=== PATIENT | male | born 1990 | race Caucasian/White ===

== ENCOUNTER → 2019-06-11 09:04 | Outpatient (BNVA) | payer MEDICAID, SELFPAY | PROVIDERS: PCP Psychiatry & Neurology Psychiatry; Visit Provider Nurse Practitioner | DX: F71 Moderate intellectual disabilities (principal); F63.81 Intermittent explosive disorder | CPT/HCPCS: 99213 ==

== ENCOUNTER → 2019-09-02 07:42 | Outpatient (BNVA) | payer MEDICAID, SELFPAY | PROVIDERS: PCP Psychiatry & Neurology Psychiatry; Visit Provider Nurse Practitioner | DX: F63.81 Intermittent explosive disorder (principal); F71 Moderate intellectual disabilities | CPT/HCPCS: 99214 ==

== ENCOUNTER → 2019-09-30 08:23 | Outpatient (BNVA) | payer MEDICAID, SELFPAY | PROVIDERS: PCP Psychiatry & Neurology Psychiatry; Visit Provider Nurse Practitioner | DX: F63.81 Intermittent explosive disorder (principal); F71 Moderate intellectual disabilities | CPT/HCPCS: 99213 ==

== ENCOUNTER → 2019-12-29 07:57 | Outpatient (BNVA) | payer MEDICAID, SELFPAY | PROVIDERS: PCP Psychiatry & Neurology Psychiatry; Visit Provider Nurse Practitioner | DX: F63.81 Intermittent explosive disorder (principal); F71 Moderate intellectual disabilities | CPT/HCPCS: 99213 ==

== ENCOUNTER → 2020-01-16 08:01 | Outpatient (BNVA) | payer MEDICAID, SELFPAY | PROVIDERS: PCP Psychiatry & Neurology Psychiatry; Visit Provider Nurse Practitioner | DX: F63.81 Intermittent explosive disorder (principal); F71 Moderate intellectual disabilities | CPT/HCPCS: 99214 ==

== ENCOUNTER 2020-02-09 11:45 | Outpatient (CLI) | payer MEDICAID, SELFPAY ==
--- NOTE | 2020-02-09 11:53 | CT_ITS ---
WS: [id number] CT ABDOMEN PELVIS TECHNIQUE: Contrast-enhanced CT of the abdomen and pelvis with coronal and sagittal reformatted image s. CLINICAL INFORMATION: HEMATURIA COMPARISON: CT 10 013 DLP: 1337.[address] scans at [facility] use at least one of these dose optimization techniques: automat ed exposure control; mA and/or kV adjustment per patient size (includes targeted exams where dose is matched to clinical indication); or iterative reconstruction. FINDINGS: Mild diffuse fatty infiltration of the liver. Portal vein and splenic vein are patent. Normal gallbla dder. Normal spleen. Normal GE junction. Slight bibasilar atelectasis. Normal pancreas. Adrenal gland s are normal. Normal renal parenchymal enhancement. No hydronephrosis. Bladder is normal in appearanc e. No bladder wall thickening. No visualized bladder lesions. Normal sigmoid colon. No evidence of small or large bowel obstruction. Tiny fat-containing umbilical hernia. Induration in the subcutaneous anterior abdominal wall soft tissues may be related to subcuta neous injections. Normal caliber abdominal aorta. No pelvic or inguinal lymphadenopathy. Disc space narrowing worse L5- S1. Slight retrolisthesis L5 on S1. Disc bulging worse L4-5. CT/CT abdomen pelvis w con* [id number] IMPRESSION: 1. Mild diffuse fatty infiltration liver. 2. Normal bilateral renal parenchymal enhancement. No hydronephrosis. 3. Bladder is normal in appearance. No visualized bladder lesion. If symptoms persist bladder can be further evaluated with cystoscopy. 4. No abdominal or pelvic lymphadenopathy. 5. Mild disc bulging with small central protrusion L4-5.
[2020-02-09] MEDS: iohexol 300 mg/mL 100 mL Btl IV (12:23)
== END 2020-02-09 11:46 | disposition home or self-care (01) ==
LOC: RADWPI 11:50
PROVIDERS: PCP Psychiatry & Neurology Psychiatry; Visit Provider Family Medicine
DX: R31.9 Hematuria, unspecified (principal); K76.0 Fatty (change of) liver, not elsewhere classified; M51.26 Other intervertebral disc displacement, lumbar region
CPT/HCPCS: 74177; Q9967

== ENCOUNTER → 2020-02-13 13:11 | Outpatient (BNVA) | payer MEDICAID, SELFPAY | PROVIDERS: PCP Family Medicine; Visit Provider Urology | DX: R31.0 Gross hematuria (principal) | CPT/HCPCS: 81001 ==

== ENCOUNTER → 2020-03-12 07:36 | Outpatient (BNVA) | payer MEDICAID, SELFPAY | PROVIDERS: PCP Family Medicine; Visit Provider Nurse Practitioner | DX: F63.81 Intermittent explosive disorder (principal); Z79.899 Other long term (current) drug therapy; F71 Moderate intellectual disabilities | CPT/HCPCS: 99213 ==

== ENCOUNTER 2020-03-19 13:43 | Emergency (ER) | payer MEDICAID, SELFPAY ==
[2020-03-19 14:01] VITALS: BP 142/103; PULSE 90; RESP 18; TEMP 37.5; O2SAT 95; BMI 37.3
--- NOTE | 2020-03-19 15:23 | W.ED.DENTAL ---
HPI - Dental/Oral General: Chief complaint: Dental/Oral Stated complaint: R SIDED TOOTH PAIN Time Seen by Provider: 03/19/20 15:19 Source: patient Mode of arrival: ambulatory Limitations: other ([facility] - staff with him) History of Present Illness: HPI Narrative: 29-year-old male patient presents to the emergency department with 1 day onset of dental pain. He reports pain located to the right side of his mouth. States pain with chewing. MD Complaint: tooth pain Teeth map: 1. Onset (ago): day(s) (1) Duration: constant Severity: moderate Relieving factors: other (Tylenol) Exacerbating factors: chewing, cold and heat Context: history of dental caries Associated symptoms: Reports no associated symptoms; Denies fever(s) Treatment prior to arrival: topical analgesic Review of Systems General: Reports: 10 or more systems reviewed and unremarkable except in HPI and below Const: Denies: fever(s), chills or diaphoresis Eyes: Denies: blurry vision or eye redness ENMT: Reports: dental pain; Denies: throat pain, swelling of lips/tongue, oral sores, halitosis or disequilibrium Card: Denies: chest pain, palpitations or irregular heart rhythm Resp: Denies: dyspnea, productive cough, non-productive cough or wheezing GI: Denies: abdominal pain, nausea or vomiting : Denies: dysuria Musc: Denies: back pain Skin/Breast: Denies: rash or pruritus Neuro: Denies: headache(s), weakness in extremities or behavioral changes Psych: Denies: anxiety or depression Jamar/Lymph: Denies: easy bruising PFSH ED PFSH: Medical History (Updated 03/19/20 @ 15:31 by RADHA Duggan) Intermittent explosive disorder Moderate intellectual disabilities Testicular pain Social History Smoking and tobacco status: never smoked Alcohol intake: never Caregiver/support person: Yes Lives independently: No Housing: Assisted Living Facility Marital status: Single Current occupational status: disabled Physical Exam Const: COMMON NORMALS: no acute distress, patient oriented x3, healthy appearing and alert GENERAL APPEARANCE: cooperative, comfortable and well hydrated HENMT: COMMON NORMALS: normocephalic, Normal external nose present and moist oral mucous membranes HEAD & SCALP: normocephalic FACE & SINUS: normal facial exam and face symmetric NOSE: Normal external nose present TEETH & GINGIVA IMAGES: 1. gingival edema and erythema, caries to the lateral tooth THROAT: posterior oropharynx normal OTHER: negative Clovis's angina Eye: COMMON NORMALS: Equal, round and reactive pupils present and EOMs intact bilaterally GENERAL EYE: appearance normal, both eyes and all related structures PUPIL: Yes Equal, round and reactive pupils present Neck/C-Spine: COMMON NORMALS: full ROM and no lymphadenopathy GENERAL: Yes normal visual inspection and Yes trachea midline CERVICAL SPINE: Yes cervical ROM normal Lymph: LYMPHATIC: no lymphadenopathy noted Chest: COMMONS NORMALS: normal inspection of the chest Resp: COMMON NORMALS: normal respiratory effort and clear to auscultation bilaterally AUSCULTATION: clear to auscultation bilaterally Cardio: COMMON NORMALS: regular rhythm, S1 normal heart sound present and S2 normal heart sound present RHYTHM: regular rhythm HEART SOUNDS: S1 normal heart sound present and S2 normal heart sound present GI: COMMON NORMALS: Soft to palpation and non-tender INSPECTION: Yes normal to inspection PALPATION: Yes Soft to palpation : COMMON NORMALS: Yes no CVA tenderness BLADDER/KIDNEY EXAM: Yes no CVA tenderness Back/Pelvis: COMMON NORMALS: no CVA tenderness and thoracic and lumbar spine normal to inspection Extremity: COMMON NORMALS: normal to inspection and capillary refill normal Neuro: COMMON NORMALS: patient oriented x3 and no focal motor deficits SENSORIUM/ORIENTATION: Yes alert Psych: COMMON NORMALS: mental status grossly normal, Normal thought process present and cooperative ACTIVITY/MOTOR BEHAVIOR: Yes appropriate eye contact THOUGHT PROCESS: Normal thought process present Skin: COMMON NORMALS: no rashes or lesions noted and turgor normal GENERAL SKIN EXAM: no rashes or lesions noted and turgor normal Course Vital Signs: Vital signs: Vital Signs Temperature 99.5 F 03/19/20 14:01 Pulse Rate 90 03/19/20 14:01 Respiratory Rate 18 03/19/20 14:01 Blood Pressure 142/103 03/19/20 14:01 Pulse Oximetry 95 03/19/20 14:01 Discharge Plan Discharge Patient Disposition: Home Clinical Impression: Dental caries, Dental abscess, Toothache Condition: Stable Prescriptions: New clindamycin HCl 300 mg capsule 300 mg PO QID 7 Days Qty: 28 RF: 0 IBU 800 mg tablet 800 mg PO TID PRN (Reason: pain) Qty: 30 RF: 0 Lidocaine Viscous 2 % solution 1.2 ml topical Q3H PRN (Reason: pain) Qty: 15 RF: 0 No Action atorvastatin 20 mg tablet 20 mg PO DAILY RF: 0 atorvastatin 10 mg tablet 10 mg PO DAILY RF: 0 ferrous sulfate 325 mg (65 mg iron) tablet 325 mg PO DAILY RF: 0 lisinopril 2.5 mg tablet 2.5 mg PO DAILY RF: 0 levothyroxine 125 mcg capsule 125 mcg PO DAILY RF: 0 insulin aspart U-100 [Novolog PenFill U-100 Insulin] 100 unit/mL cartridge 12 unit SUBCUT TID RF: 0 Levemir U-100 Insulin 100 unit/mL solution 28 unit SUBCUT TID RF: 0 hydroxyzine HCl 25 mg tablet 25 mg PO BID Qty: 60 RF: 1 fluoxetine 20 mg capsule 20 mg PO DAILY Qty: 30 RF: 2 divalproex 500 mg tablet extended release 24 hr 500 mg PO .COMPLEX Qty: 120 RF: 2 benztropine 0.5 mg tablet 0.5 mg PO TID Qty: 90 RF: 1 oxcarbazepine [Trileptal] 600 mg tablet 600 mg PO TID Qty: 90 RF: 1 risperidone [Risperdal] 1 mg tablet 2 mg PO TID Qty: 180 RF: 1 trazodone 150 mg tablet 150 mg PO .HS Qty: 30 RF: 1 Discharge Orders: Discharge Order (Routine); Ordered 03/19/20 Ordered By: Lisa Paige Referrals: Naeem Sheikh MD [Primary Care Provider] - Discharge Diet: GI Soft Discharge Activity: Resume usual activity Patient Instructions: Dental Abscess (ED), Dental Caries (ED), Toothache (ED) Activity Restrictions/Additional Instructions: avoid crunchy, hard foods Take clindamycin until all gone, even if better Take IBU with food, avoid eating on the affected side, may use Tylenol as needed for pain Return to the ED if you experience swelling under the chin, difficulty swallowing or increased pain Warm salt water swish and spit several times daily Avoid OTC medication such as Advil, Aleve as duplication of theray can occur Follow up with dentist in 7 days - sooner if worse Coding Level of Care Code ED Wedding Transportation Driver for Chg Fwd Exam Comprehensive
== END 2020-03-19 15:35 | disposition home or self-care (01) ==
PROVIDERS: Emergency Provider Nurse Practitioner Family; PCP Family Medicine
DX: K02.9 Dental caries, unspecified (principal); K04.7 Periapical abscess without sinus; Z79.4 Long term (current) use of insulin
CPT/HCPCS: 12345; 99281

== ENCOUNTER 2020-03-21 14:25 | Emergency (ER) | payer MEDICAID, SELFPAY ==
[2020-03-21 14:28] VITALS: BP 146/105; PULSE 113; RESP 18; TEMP 36.5; O2SAT 97; BMI 30.7
--- NOTE | 2020-03-21 14:33 | ED_ITS ---
HPI - Skin/Abscess/Foreign Bdy General: Chief complaint: Skin/Abscess/Foreign Body Stated complaint: segundo alejandre sent over/infection in face Time Seen by Provider: 03/21/20 14:33 History of Present Illness: HPI narrative: Patient is a 29-year-old male comes to the ED with right-sided facial swelling and pain due to dental pain and infection. Patient was seen here in the ED on March 19 for same complaint and put on clindamycin. Sent over by Segundo Alejandre today for worsening swelling of the face. He has taken medication as prescribed and states that after being on antibiotic for 2 days his face has gotten more swollen and more painful. He says the original pain was a dental pain in the right lower jaw that started approximately 3 to 4 days ago. He currently rates pain an 8 out of 10. He talked to a dentist several days ago and they told him he needs to be on an antibiotic before he can be seen by dentist. He says he has had 2 episodes of emesis right after taking his other previously prescribed meds. He denies any fever, chills, shortness of breath, trouble breathing, abdominal pain, bladder or bowel symptoms. Associated symptoms: Deny chills, fever(s), nausea or vomiting Review of Systems Const: Denies: fever(s), chills or fatigue Eyes: Denies: change in vision or eye discomfort ENMT: Reports: dental pain and sinus pain (Right lower jaw swelling and pain.); Denies: throat pain, odynophagia, nasal discharge or nasal congestion Card: Denies: chest pain, palpitations, edema, swelling of feet/ankles, dyspnea on exertion or orthopnea Resp: Denies: dyspnea, productive cough or non-productive cough GI: Denies: abdominal pain, nausea, vomiting, diarrhea, constipation or hematochezia : Denies: flank pain, difficulty urinating, dysuria or hematuria Musc: Denies: neck pain, back pain or extremity swelling Skin/Breast: Denies: rash or new lesions Neuro: Denies: headache(s), numbness in extremities or weakness in extremities [facility] ED PFSH: Medical History Intermittent explosive disorder Moderate intellectual disabilities Testicular pain Social History Smoking and tobacco status: never smoked Alcohol intake: never Caregiver/support person: Yes Lives independently: No Housing: Assisted Living Facility Marital status: Single Current occupational status: disabled Physical Exam Const: COMMON NORMALS: no acute distress, patient oriented x3 and alert GENERAL APPEARANCE: cooperative and comfortable HENMT: COMMON NORMALS: normocephalic HEAD & SCALP: normocephalic FACE & SINUS: edema on the right mandible and Facial tenderness on exam of face and sinuses on the right mandible MOUTH: Normal oral and palatal mucosa present TEETH & GINGIVA: Yes caries (Caries around tooth #29 and thirty.) and Yes gingiva abnormal edematous (Around tooth #29 and 30.) THROAT: posterior oropharynx normal and uvula midline Eye: COMMON NORMALS: Equal, round and reactive pupils present and conjunctivae normal CONJUNCTIVA: Yes conjunctivae normal PUPIL: Yes Equal, round and reactive pupils present Neck/C-Spine: COMMON NORMALS: supple GENERAL: Yes normal visual inspection Resp: COMMON NORMALS: normal respiratory effort, No retractions, No use of accessory muscles and clear to auscultation bilaterally AUSCULTATION: clear to auscultation bilaterally Cardio: COMMON NORMALS: regular rate, regular rhythm, S1 normal heart sound present, S2 normal heart sound present, No gallops present (Cardio), No clicks present (Cardio), No murmurs present (Cardio) and Peripheral pulses 2+ throughout RATE: regular rate RHYTHM: regular rhythm HEART SOUNDS: S1 normal heart sound present and S2 normal heart sound present PERIPHERAL PULSES: Peripheral pulses 2+ throughout GI: COMMON NORMALS: Normal to inspection, nondistended, normoactive bowel sounds present, Soft to palpation, non-tender and no masses PALPATION: Yes Soft to palpation : COMMON NORMALS: Yes no CVA tenderness BLADDER/KIDNEY EXAM: Yes no CVA tenderness Back/Pelvis: COMMON NORMALS: no CVA tenderness Extremity: COMMON NORMALS: normal to inspection Neuro: COMMON NORMALS: patient oriented x3 and moves all extremities SENSORIUM/ORIENTATION: Yes alert Skin: GENERAL SKIN EXAM: dry skin Course Vital Signs: Vital signs: Vital Signs Temperature 97.6 F 03/21/20 16:54 Pulse Rate 96 03/21/20 16:54 Respiratory Rate 16 03/21/20 16:54 Blood Pressure 123/77 03/21/20 16:54 Pulse Oximetry 97 03/21/20 16:54 MDM - Skin/Abscess/Foreign Bdy MDM Narrative: Medical decision making narrative: Patient is a 29-year-old male comes to the ED with right mandibular dental pain. He was seen here 2 days ago for same complaint. He was sent over here by Segundo Alejandre for worsening swelling. Patient had been taking his antibiotics as prescribed for the past 2 days. On exam patient did have significant right lower mandible facial swelling. CT of neck was performed to check for abscess. CT of neck findings showed no abscess or fluid pocket and just showed dental disease of first right mandibular molar with surrounding edema and reactive right submandibular lymph node swelling. Patient was given IV clindamycin and Solu-Medrol while here in the ED. He was discharged and told to contact dentist tomorrow to set up an appointment to get dental pain addressed. He was told to continue taking his prescribed clindamycin. I also sent him home with a prescription for Medrol Dosepak to help with the swelling. Return to ED precautions given. Patient understood and agreed with plan. Lab Data: Attestation: I reviewed the patient's lab results. Labs: Lab Results 03/21/20 03/21/20 Range/Units 15:15 15:15 WBC 6.2 (4.0-10.0) 10^3/ uL RBC 5.10 (4.1-5.3) 10^6/u L Hgb 13.4 (11.7-16.6) g/dL Hct 42.1 (42.0-52.0) % MCV 82.5 (80-94) fL MCH 26.3 L (28.0-34.0) pg MCHC 31.8 (30.0-36.0) g/dL RDW 13.2 (12.1-15.1) % Plt Count 216 (130-400) 10^3/c mm MPV 9.5 (7.4-10.4) fL Neut % (Auto) 59.6 % Lymph % (Auto) 24.7 % [place] % (Auto) 14.5 % Eos % (Auto) 0.6 % Baso % (Auto) 0.3 % Neut # (Auto) 3.69 (1.8-7.7) 10^3/u L Lymph # (Auto) 1.5 (0.8-4.8) 10^3/u L [place] # (Auto) 0.9 (0.2-0.9) 10^3/u L Eos # (Auto) 0.0 (0.0-0.8) 10^3/u L Baso # (Auto) 0.0 (0.0-0.1) 10^3/u L Nucleated RBC % (a uto) 0 % Nucleated RBCs # 0.0 /100WBC Sodium 137 (136-145) mmol/L Potassium 4.2 (3.5-5.1) mmol/L Chloride 99 (98-107) mmol/L Carbon Dioxide 27 (22-29) mmol/L Anion Gap 15.2 (5-19) BUN 12 (6-20) mg/dL Creatinine 0.7 (0.7-1.2) mg/dL GFR Calculation 131.5 H (90-130) mL/min Glucose 234 H (65-115) mg/dL Calculated Osmolal ity 291 (285-295) mOsm/k g Calcium 9.5 (8.5-10.5) mg/dL Total Bilirubin 0.2 (0.15-1.2) mg/dL AST 14 (0-40) U/L ALT 16 (0-41) U/L Alkaline Phosphata se 82 (40-130) IU/L Total Protein 7.1 (6.6-8.7) g/dL Albumin 4.3 (3.5-5.2) g/dL Globulin 2.8 (1.3-4.6) g/dL Imaging Data^: Other CT: Attestation: I personally reviewed and interpreted this imaging study as follows: Radiologist's impression: [address] [address] [address] Scan Report Signed Patient: Alex Mosqueda Unit #: [id number] : 1990 Age/Sex: 29 / M ADM Date: 03/21/20 Loc: ER Room/Bed: Attending Dr: Ordering Provider/Ordering MD: Yong Ray Date of Service: 03/21/20 Procedure(s): CT neck w con* [id number] Accession Number(s): [id number] Report Number: [id number] PROCEDURE INFORMATION: Exam: CT Neck With Contrast Exam date and time: 03/21/2020 3:03 PM Age: 29 years old Clinical indication: Mass, lump, or swelling in neck; Patient HX: C/O R sided facial and neck swelling and pain; Additional info: Facial swelling TECHNIQUE: Imaging protocol: Computed tomography images of the neck with intravenous contrast. Radiation optimization: All CT scans at this facility use at least one of these dose optimization techniques: automated exposure control; mA and/or kV adjustment per patient size (includes targeted exams where dose is matched to clinical indication); or iterative reconstruction. Contrast material: OMNI 300; Contrast volume: 95 ml; Contrast route: INTRAVENOUS (IV); COMPARISON: No relevant prior studies available. RADIATION DOSE METRICS: Total DLP (mGy-cm): 776.44 FINDINGS: Mastoid air cells: The mastoid air cells are clear bilaterally. Paranasal sinuses: No air-fluid levels in the paranasal sinuses. Nasopharynx: Unremarkable. Dental: Dental work noted in the 1st right mandibular molar. The there is lucency surrounding the roots of this tooth, suggesting recurrent dental disease. Oropharynx: Mild bilaterally symmetric tonsillar enlargement. No peritonsillar abscess. No compromise of the airway. Hypopharynx: Unremarkable. Larynx: Unremarkable. No epiglotic enlargement. Retropharyngeal space: Unremarkable. Submandibular/Parotid glands: Glands are normal in size. Thyroid: No enlarged or calcified nodules. Lymph nodes: Right submandibular lymph nodes measuring up to 2.2 cm, consistent with reactive adenopathy. Trachea: Unremarkable. Lungs: Unremarkable as visualized. Bones/joints: No acute fracture. Soft tissues: There is extensive edema in the right-sided subcutaneous fat anterior to the mandible. Edema of the right masseter muscle also noted. No fluid collection or abscess noted. CT/CT neck w con* [id number] IMPRESSION: 1. Dental work noted in the 1st right mandibular molar. The there is lucency surrounding the roots of this tooth, suggesting recurrent dental disease. 2. There is extensive edema in the right-sided subcutaneous fat anterior to the mandible. Edema of the right masseter muscle also noted. No fluid collection or abscess noted. This edema is likely secondary to the visualized dental disease. 3. Right submandibular lymph nodes measuring up to 2.2 cm, consistent with reactive adenopathy. 4. Mild bilaterally symmetric tonsillar enlargement. No peritonsillar abscess. No compromise of the airway. Radiation Dose CTDIVOL = (mGy): DLP = 776.44 (mGy-cm) Dictated By: Jez Garcia MD Signed By: Jez Garcia MD Signed Date/Time: 03/21/201612 DD/ 10 Discharge Plan Discharge Patient Disposition: Home Clinical Impression: Dental disease Condition: Stable Prescriptions: New Medrol (Indra) 4 mg tablets,dose pack See Rx Instructions .ROUTE .COMPLEX Qty: 21 RF: 0 No Action atorvastatin 20 mg tablet 20 mg PO DAILY RF: 0 atorvastatin 10 mg tablet 10 mg PO DAILY RF: 0 ferrous sulfate 325 mg (65 mg iron) tablet 325 mg PO DAILY RF: 0 lisinopril 2.5 mg tablet 2.5 mg PO DAILY RF: 0 levothyroxine 125 mcg capsule 125 mcg PO DAILY RF: 0 insulin aspart U-100 [Novolog PenFill U-100 Insulin] 100 unit/mL cartridge 12 unit SUBCUT TID RF: 0 Levemir U-100 Insulin 100 unit/mL solution 28 unit SUBCUT TID RF: 0 hydroxyzine HCl 25 mg tablet 25 mg PO BID Qty: 60 RF: 1 fluoxetine 20 mg capsule 20 mg PO DAILY Qty: 30 RF: 2 divalproex 500 mg tablet extended release 24 hr 500 mg PO .COMPLEX Qty: 120 RF: 2 benztropine 0.5 mg tablet 0.5 mg PO TID Qty: 90 RF: 1 oxcarbazepine [Trileptal] 600 mg tablet 600 mg PO TID Qty: 90 RF: 1 risperidone [Risperdal] 1 mg tablet 2 mg PO TID Qty: 180 RF: 1 trazodone 150 mg tablet 150 mg PO .HS Qty: 30 RF: 1 clindamycin HCl 300 mg capsule 300 mg PO QID 7 Days Qty: 28 RF: 0 IBU 800 mg tablet 800 mg PO TID PRN (Reason: pain) Qty: 30 RF: 0 Lidocaine Viscous 2 % solution 1.2 ml topical Q3H PRN (Reason: pain) Qty: 15 RF: 0 Discharge Orders: Discharge Order (Routine); Ordered 03/21/20 Ordered By: Yong Ray Referrals: Naeem Sheikh MD [Primary Care Provider] - Discharge Diet: Regular Discharge Activity: Resume usual activity Patient Instructions: Dental Caries (ED) Activity Restrictions/Additional Instructions: Follow-up with medical provider as directed. Contact dentist to set up an appointment with them for evaluation. Continue taking antibiotic and start taking daily prescribed Medrol Dosepak to help with facial swelling. Return to the ER or your medical provider if condition worsens. Please read and understand discharge instructions. If any questions, please ask. Coding Level of Care Code ED Bliss [employer] Operator for Chg Fwd Exam Comprehensive
[2020-03-21 15:22] VITALS: BP 127/75; PULSE 94; RESP 18; O2SAT 95
[2020-03-21] MEDS: ondansetron 2 mg/ML SDV 2 mL 4 MG IVP (15:24)
[2020-03-21 15:25] VITALS: RESP 18
[2020-03-21] MEDS: morphine 4 mg/mL SDV 1 mL IVP (15:25)
[2020-03-21] MEDS: sodium chloride 0.9% 1,000 ML 999 ML IV (15:26)
[2020-03-21] MEDS: clindamycin 600 MG/50 ML PREMIX 100 MG IV (15:26)
[2020-03-21] MEDS: iohexol 300 mg/mL 100 mL Btl IV (15:43)
[2020-03-21 15:57] LABS: Basophils % 0.3 %; Eosinophils % 0.6 %; Hematocrit 42.1 % (42.0-52.0); Hemoglobin 13.4 g/dL (11.7-16.6); Lymphocytes # 1.5 10^3/uL (0.8-4.8); Lymphocytes % 24.7 %; Mean Corpuscular HGB Conc 31.8 g/dL (30.0-36.0); Mean Corpuscular Hemoglobin 26.3 pg (28.0-34.0); Mean Corpuscular Volume 82.5 fL (80-94); Mean Platelet Volume 9.5 fL (7.4-10.4); Monocytes # 0.9 10^3/uL (0.2-0.9); Monocytes % 14.5 %; Neutrophils # 3.69 10^3/uL (1.8-7.7); Neutrophils % 59.6 %; Nucleated Red Blood Cells % 0 %; Platelet Count 216 10^3/cmm (130-400); Red Cell Distribution Width 13.2 % (12.1-15.1); White Blood Count 6.2 10^3/uL (4.0-10.0)
[2020-03-21 16:36] LABS: Alanine Aminotransferase 16 U/L (0-41); Albumin Level 4.3 g/dL (3.5-5.2); Alkaline Phosphatase 82 IU/L (40-130); Anion Gap 15.2 (5-19); Aspartate Amino Transferase 14 U/L (0-40); Blood Urea Nitrogen 12 mg/dL (6-20); Calcium 9.5 mg/dL (8.5-10.5); Carbon Dioxide 27 mmol/L (22-29); Chloride 99 mmol/L (98-107); Globulin 2.8 g/dL (1.3-4.6); Glomerular Filtration Rate 131.5 mL/min (90-130); Glucose 234 mg/dL (65-115); Osmolality Calculated 291 mOsm/kg (285-295); Potassium 4.2 mmol/L (3.5-5.1); Sodium 137 mmol/L (136-145); Total Bilirubin 0.2 mg/dL (0.15-1.2); Total Protein 7.1 g/dL (6.6-8.7)
[2020-03-21 16:54] VITALS: BP 123/77; PULSE 96; RESP 16; TEMP 36.4; O2SAT 97
--- NOTE | 2020-03-22 12:39 | PC.NURSE ---
positive blood culture result taken from [facility] in lab. results reported to Dr. Kim
--- NOTE | 2020-03-30 11:00 | PC.NURSE ---
Dr. Kim reviewed blood cultures and wants patient to follow up with PCP. Patient called and educated to follow up with PCP.
== END 2020-03-21 16:57 | disposition home or self-care (01) ==
PROVIDERS: Emergency Provider Physician Assistant; PCP Family Medicine
DX: K08.9 Disorder of teeth and supporting structures, unspecified (principal); Z79.4 Long term (current) use of insulin
CPT/HCPCS: 12345; 70491; 80053; 85025; 87040; 96365; 96375; 99283; J2270; J2405; J2930; J3490; J7030; Q9967

== ENCOUNTER → 2020-05-12 08:39 | Outpatient (BNVA) | payer MEDICAID, SELFPAY | PROVIDERS: PCP Family Medicine; Visit Provider Nurse Practitioner | DX: Z79.899 Other long term (current) drug therapy (principal) | CPT/HCPCS: 80164 ==

== ENCOUNTER → 2020-05-24 08:20 | Outpatient (BNVA) | payer MEDICAID, SELFPAY | PROVIDERS: PCP Family Medicine; Visit Provider Nurse Practitioner | DX: F71 Moderate intellectual disabilities (principal); F63.81 Intermittent explosive disorder | CPT/HCPCS: 99213 ==

== ENCOUNTER → 2020-08-17 13:51 | Outpatient (BNVA) | payer MEDICAID, SELFPAY | PROVIDERS: PCP Family Medicine; Visit Provider Social Worker Clinical | DX: F63.81 Intermittent explosive disorder (principal); F71 Moderate intellectual disabilities | CPT/HCPCS: 90834 ==

== ENCOUNTER → 2020-08-19 10:17 | Outpatient (BNVA) | payer MEDICAID, SELFPAY | PROVIDERS: PCP Family Medicine; Visit Provider Nurse Practitioner | DX: F71 Moderate intellectual disabilities (principal); F63.81 Intermittent explosive disorder | CPT/HCPCS: 99214 ==

== ENCOUNTER → 2020-11-11 12:51 | Outpatient (BNVA) | payer MEDICAID, SELFPAY | PROVIDERS: PCP Family Medicine; Visit Provider Nurse Practitioner | DX: F71 Moderate intellectual disabilities (principal); F63.81 Intermittent explosive disorder | CPT/HCPCS: 99214 ==

== ENCOUNTER → 2021-02-10 12:37 | Outpatient (BNVA) | payer MEDICAID, SELFPAY | PROVIDERS: PCP Family Medicine; Visit Provider Nurse Practitioner | DX: F71 Moderate intellectual disabilities (principal); F63.81 Intermittent explosive disorder | CPT/HCPCS: 99214 ==

== ENCOUNTER → 2021-05-05 09:24 | Outpatient (BNVA) | payer MEDICAID, SELFPAY | PROVIDERS: PCP Family Medicine; Visit Provider Nurse Practitioner | DX: F71 Moderate intellectual disabilities (principal); F63.81 Intermittent explosive disorder | CPT/HCPCS: 99214 ==

== ENCOUNTER → 2021-08-04 11:08 | Outpatient (BNVA) | payer MEDICAID, SELFPAY | PROVIDERS: PCP Family Medicine; Visit Provider Nurse Practitioner | DX: F71 Moderate intellectual disabilities (principal); F63.81 Intermittent explosive disorder | CPT/HCPCS: 99214 ==

== ENCOUNTER 2021-08-11 06:09 | Outpatient (CLI) | payer MEDICAID, SELFPAY ==
--- NOTE | 2021-08-11 06:30 | US_ITS ---
WS: [id number] TESTICULAR ULTRASOUND HISTORY: SPERMATOCELE COMPARISON: 12/04/2019 TECHNIQUE: Real-time and color Doppler imaging or utilized to perform a testicular ultrasound. Right testicle: 4.7 cm x 2.7 cm x 2.1 cm. Normal size and echogenicity. No mass or torsion. There are 2 intratesticular calcification which wer e seen on the prior study. Normal color Doppler is present throughout. Systolic and diastolic velocities are both present. No significant hydrocele. Right epididymis: Normal size epididymal head. Well-circumscribed cystic mass measures 9 x 8 x 9 mm c onsistent with a spermatocele. Very minimal increase in size since the prior examination. Left testicle: 4.5 cm x 2.5 cm x 2.5 cm. Normal size and echogenicity. No mass or torsion. Normal color Doppler is present throughout. Systolic and diastolic velocities are both present. No significant hydrocele. Left epididymis: Normal epididymis with no increased vascularity. US/US scrotum [id number] IMPRESSION: 1. Slight increase in size of the RIGHT epididymal head spermatocele since 12/03. 2. No testicular mass or torsion. 3. Small, stable RIGHT intratesticular calcifications.
== END 2021-08-11 06:10 | disposition home or self-care (01) ==
LOC: RAD 06:11
PROVIDERS: PCP Family Medicine; Visit Provider Urology
DX: N43.40 Spermatocele of epididymis, unspecified (principal)
CPT/HCPCS: 76870; 81003

== ENCOUNTER → 2021-10-27 12:54 | Outpatient (BNVA) | payer MEDICAID, SELFPAY | PROVIDERS: PCP Family Medicine; Visit Provider Nurse Practitioner | DX: F71 Moderate intellectual disabilities (principal); F63.81 Intermittent explosive disorder | CPT/HCPCS: 99214 ==

== ENCOUNTER 2022-07-17 08:19 | Emergency (ER) | payer MEDICAID, SELFPAY ==
--- NOTE | 2022-07-17 08:27 | W.ED.GENADLT ---
HPI - General Adult General: Chief complaint: Overdose Stated complaint: too much insulin Time Seen by Provider: 07/17/22 08:20 Source: patient Mode of arrival: ambulatory History of Present Illness: 31-year-old male presents emergency room with a caregiver he lives at an IS. They were assisting with his insulin this morning and gave him slightly elevated dose of his NovoLog. He was supposed to get 42 and instead he got 65. He normally takes Levemir twice daily. The caregiver tells me normally he gets 65 units of Levemir twice daily and 42 units of the NovoLog in the morning. His medicine list has different numbers we will have the pharmacy techs correlate that. He denies any recent illness or pain. Onset (ago): minute(s) Relieving factors: none Associated symptoms: Deny chest pain, confusion, cough, diaphoresis, decreased appetite, dyspnea, fevers/chills, headache(s), malaise, nausea, rash, palpitations, seizures, short of breath, syncope, vomiting or weakness Treatments prior to arrival: none Review of Systems Const: Denies: fever(s), chills, fatigue, malaise or diaphoresis ENMT: Denies: throat pain, ear or mastoid pain, nasal discharge or nasal congestion Card: Denies: chest pain, palpitations or syncope Resp: Denies: dyspnea GI: Denies: abdominal pain, nausea, vomiting or diarrhea : Denies: flank pain, dysuria, urinary frequency or urinary urgency Skin/Breast: Denies: rash Neuro: Denies: headache(s) or confusion PFS ED PFSH: Medical History Intermittent explosive disorder Moderate intellectual disabilities Psychiatric care Testicular pain Social History Smoking and tobacco status: never smoked Alcohol intake: never Caregiver/support person: Yes Lives independently: No Housing: Assisted Living Facility Marital status: Single Current occupational status: disabled Physical Exam Const: GENERAL APPEARANCE: cooperative and comfortable ORIENTATION/CONSCIOUSNESS: Yes awake, Yes oriented to person, Yes oriented to place and Yes oriented to time HENMT: COMMON NORMALS: normocephalic, atraumatic and hearing grossly normal bilaterally HEAD & SCALP: normocephalic and atraumatic Resp: COMMON NORMALS: normal respiratory effort, No retractions, No use of accessory muscles and clear to auscultation bilaterally AUSCULTATION: clear to auscultation bilaterally Cardio: COMMON NORMALS: regular rate, regular rhythm and No murmurs present (Cardio) RATE: regular rate RHYTHM: regular rhythm GI: COMMON NORMALS: Soft to palpation and No hepatosplenomegaly present AUSCULTATION: Yes normoactive bowel sounds PALPATION: Yes Soft to palpation, No Tenderness to palpation present (GI), No Guarding due to palpation present (GI) and Yes No hepatosplenomegaly present Extremity: COMMON NORMALS: normal to inspection, capillary refill normal, no clubbing, cyanosis or edema, no calf tenderness and no pedal edema Neuro: SENSORIUM/ORIENTATION: Yes oriented to person, Yes oriented to place and Yes oriented to time Skin: COMMON NORMALS: no rashes or lesions noted GENERAL SKIN EXAM: no rashes or lesions noted Course Vital Signs: Vital signs: Vital Signs Temperature 98.5 F 07/17/22 08:33 Pulse Rate 84 07/17/22 08:33 Respiratory Rate 16 07/17/22 08:33 Blood Pressure 180/115 07/17/22 08:33 Pulse Oximetry 93 07/17/22 08:33 MDM - General Adult Medical Decision Making Seen today for an accidental elevated dose of his NovoLog. He received 65 units was normal he did receive 42 and takes 65 of his Levemir. He was monitored for time in the ER blood sugars remain stable. He is relatively insulin resistant as reflected by the elevated doses of his NovoLog and Levemir. Recommend he take a 30 unit dose of his Levemir eat normally monitor blood sugars closely throughout the day if he has any sensations are getting low recheck resume his regular dosages this evening. Medical Records I reviewed the patient's medical records. Lab Data I reviewed the patient's lab results. 07/17/22 08:38 07/17/22 08:38 Laboratory Results WBC 5.5 10^3/uL (4.0-10.0) 07/17/22 08:38 RBC 5.32 10^6/uL (4.1-5.3) H 07/17/22 08:38 Hgb 14.1 g/dL (11.7-16.6) 07/17/22 08:38 Hct 43.8 % (42.0-52.0) 07/17/22 08:38 MCV 82.3 fl (80-94) 07/17/22 08:38 MCH 26.5 pg (28.0-34.0) L 07/17/22 08:38 MCHC 32.2 g/dL (30.0-36.0) 07/17/22 08:38 RDW 13.1 % (12.1-15.1) 07/17/22 08:38 Plt Count 230 10^3/cmm (130-400) 07/17/22 08:38 MPV 9.9 fL (7.4-10.4) 07/17/22 08:38 Neut % (Auto) 48.0 % 07/17/22 08:38 Lymph % (Auto) 40.1 % 07/17/22 08:38 [place] % (Auto) 9.2 % 07/17/22 08:38 Eos % (Auto) 1.5 % 07/17/22 08:38 Baso % (Auto) 0.7 % 07/17/22 08:38 Neut # (Auto) 2.62 10^3/uL (1.8-7.7) 07/17/22 08:38 Lymph # (Auto) 2.2 10^3/uL (0.8-4.8) 07/17/22 08:38 [place] # (Auto) 0.5 10^3/uL (0.2-0.9) 07/17/22 08:38 Eos # (Auto) 0.1 10^3/uL (0.0-0.8) 07/17/22 08:38 Baso # (Auto) 0.0 10^3/uL (0.0-0.1) 07/17/22 08:38 Nucleated RBC % (auto) 0 % 07/17/22 08:38 Nucleated RBCs # 0.0 /100WBC 07/17/22 08:38 Sodium 137 mmol/L (136-145) 07/17/22 08:38 Potassium 4.6 mmol/L (3.5-5.1) 07/17/22 08:38 Chloride 99 mmol/L (98-107) 07/17/22 08:38 Carbon Dioxide 27 mmol/L (22-29) 07/17/22 08:38 Anion Gap 15.6 (5-19) 07/17/22 08:38 BUN 11 mg/dL (6-20) 07/17/22 08:38 Creatinine 0.8 mg/dL (0.7-1.2) 07/17/22 08:38 GFR Calculation 111.3 mL/min (90-130) 07/17/22 08:38 Glucose 222 mg/dL (65-115) H 07/17/22 08:38 POC Glucose 233 mg/dL (70-110) H 07/17/22 08:31 Calculated Osmolality 290 mOsm/kg (285-295) 07/17/22 08:38 Calcium 9.4 mg/dL (8.5-10.5) 07/17/22 08:38 Total Bilirubin 0.2 mg/dL (0.15-1.2) 07/17/22 08:38 AST 25 U/L (0-40) 07/17/22 08:38 ALT 43 U/L (0-41) H 07/17/22 08:38 Alkaline Phosphatase 83 U/L (40-130) 07/17/22 08:38 Total Protein 7.3 g/dL (6.6-8.7) 07/17/22 08:38 Albumin 4.4 g/dL (3.5-5.2) 07/17/22 08:38 Globulin 2.9 g/dL (1.3-4.6) 07/17/22 08:38 Discharge Plan Discharge Patient Disposition: Home Clinical Impression: Accidental overdose of insulin, Moderate intellectual disabilities, Intermittent explosive disorder, Insulin dependent diabetes mellitus Condition: Stable Prescriptions: No Action ferrous sulfate 325 mg (65 mg iron) tablet 325 mg PO DAILY levothyroxine 125 mcg capsule 125 mcg PO DAILY insulin aspart U-100 [Novolog PenFill U-100 Insulin] 100 unit/mL cartridge See Rx Instructions .ROUTE .COMPLEX Rx Instructions: 38 unit subcutaneously plus sliding scale Levemir U-100 Insulin 100 unit/mL solution 65 unit SUBCUT BID atorvastatin 20 mg tablet 40 mg PO DAILY pantoprazole 40 mg tablet,delayed release (DR/EC) 40 mg PO DAILY ondansetron HCl 4 mg tablet 4 mg PO Q8H PRN (Reason: Nausea) lisinopril 2.5 mg tablet 5 mg PO DAILY fenofibrate 54 mg tablet 54 mg PO DAILY risperidone [Risperdal] 1 mg tablet 2 mg PO TID Qty: 180 2RF Rx Instructions: take 2 tablets po TID oxcarbazepine [Trileptal] 600 mg tablet 600 mg PO TID Qty: 90 2RF divalproex 500 mg tablet extended release 24 hr 500 mg PO .COMPLEX Qty: 120 2RF Rx Instructions: 500 mg PO ; 1 po in AM and 3 po QHS benztropine 0.5 mg tablet 0.5 mg PO TID Qty: 90 2RF fluoxetine 20 mg capsule 20 mg PO DAILY Qty: 30 2RF (DME) pen needle, diabetic [Comfort EZ Pen [place]] 31 gauge x 5/16 needle See Rx Instructions .Route Qty: 100 2RF Rx Instructions: As directed hydroxyzine HCl 25 mg tablet 25 mg PO BID Qty: 60 2RF Rx Instructions: Give at 0730 and 1530 ibuprofen [IBU] 800 mg tablet 800 mg PO TID PRN (Reason: pain) Qty: 30 0RF Rx Instructions: take 1 PO TID PRN pain - take with food to avoid stomach upset lidocaine HCl [Lidocaine Viscous] 2 % solution 1.2 ml topical Q3H PRN (Reason: pain) Qty: 15 0RF Rx Instructions: apply to the affected tooth every 3 hours PRN pain - apply with Q_Tip multivitamin Tablet 1 tab PO DAILY trazodone 150 mg tablet 150 mg PO BEDTIME Discharge Orders: Discharge ED (Routine); Ordered 07/17/22 Ordered By: Byron Kim Referrals: Naeem Sheikh MD [Primary Care Provider] - Discharge Diet: Usual diet Discharge Activity: Resume usual activity Patient Instructions: Opioid Safety, Pain Management Activity Restrictions/Additional Instructions: You are seen today for an accidental increase in your NovoLog. I would recommend that you monitor your blood sugars closely throughout the day approximately every 2-3 hours or anytime you feel like it might be low. Your blood sugar remained stable in the emergency room you should eat regularly today. Would recommend a half dose of your morning Levemir (30 units). Resume your regular doses of insulin this evening. Coding Level of Care Code ED Mental Health Case Manager for Romina Jeff
[2022-07-17 08:33] VITALS: BP 180/115; PULSE 84; RESP 16; TEMP 36.9; O2SAT 93
[2022-07-17 08:34] LABS: Glucose Point of Care 233 mg/dL (70-110)
[2022-07-17 08:59] LABS: Basophils % 0.7 %; Eosinophils # 0.1 10^3/uL (0.0-0.8); Eosinophils % 1.5 %; Hematocrit 43.8 % (42.0-52.0); Hemoglobin 14.1 g/dL (11.7-16.6); Lymphocytes # 2.2 10^3/uL (0.8-4.8); Lymphocytes % 40.1 %; Mean Corpuscular HGB Conc 32.2 g/dL (30.0-36.0); Mean Corpuscular Hemoglobin 26.5 pg (28.0-34.0); Mean Corpuscular Volume 82.3 fl (80-94); Mean Platelet Volume 9.9 fL (7.4-10.4); Monocytes # 0.5 10^3/uL (0.2-0.9); Monocytes % 9.2 %; Neutrophils # 2.62 10^3/uL (1.8-7.7); Nucleated Red Blood Cells % 0 %; Platelet Count 230 10^3/cmm (130-400); Red Blood Count 5.32 10^6/uL (4.1-5.3); Red Cell Distribution Width 13.1 % (12.1-15.1); White Blood Count 5.5 10^3/uL (4.0-10.0)
[2022-07-17 09:18] LABS: Alanine Aminotransferase 43 U/L (0-41); Albumin Level 4.4 g/dL (3.5-5.2); Alkaline Phosphatase 83 U/L (40-130); Anion Gap 15.6 (5-19); Aspartate Amino Transferase 25 U/L (0-40); Blood Urea Nitrogen 11 mg/dL (6-20); Calcium 9.4 mg/dL (8.5-10.5); Carbon Dioxide 27 mmol/L (22-29); Chloride 99 mmol/L (98-107); Creatinine Clr Calc Pharmacy 178.3006; Globulin 2.9 g/dL (1.3-4.6); Glomerular Filtration Rate 111.3 mL/min (90-130); Glucose 222 mg/dL (65-115); Osmolality Calculated 290 mOsm/kg (285-295); Potassium 4.6 mmol/L (3.5-5.1); Sodium 137 mmol/L (136-145); Total Bilirubin 0.2 mg/dL (0.15-1.2); Total Protein 7.3 g/dL (6.6-8.7)
[2022-07-17 11:24] LABS: Glucose Point of Care 108 mg/dL (70-110)
[2022-07-17 11:29] VITALS: BP 167/100; PULSE 82; RESP 16; O2SAT 96
[2022-07-18 07:16] LABS: Glucose Point of Care 181 mg/dL (70-110)
== END 2022-07-17 11:31 | disposition home or self-care (01) ==
PROVIDERS: Physician Assistant; Emergency Provider Family Medicine; PCP Family Medicine
DX: T38.3X1A Poisoning by insulin and oral hypoglycemic [antidiabetic] drugs, accidental (unintentional), initial encounter (principal); F71 Moderate intellectual disabilities; F63.81 Intermittent explosive disorder; E11.9 Type 2 diabetes mellitus without complications; Z79.4 Long term (current) use of insulin
CPT/HCPCS: 36416; 80053; 82962; 85025; 99283

== ENCOUNTER → 2022-09-01 10:21 | Outpatient (BNVA) | payer MEDICAID, SELFPAY | PROVIDERS: PCP Family Medicine; Visit Provider Nurse Practitioner | DX: Z79.899 Other long term (current) drug therapy (principal) | CPT/HCPCS: 80053; 80164 ==

== ENCOUNTER 2022-10-08 20:29 | Emergency (ER) | payer MEDICAID, SELFPAY ==
[2022-10-08 20:42] VITALS: BP 155/92; PULSE 105; RESP 16; TEMP 37.2; O2SAT 95; BMI 38.9
--- NOTE | 2022-10-08 21:03 | CTR_ITS ---
PROCEDURE INFORMATION: Exam: CT Head Without Contrast Exam date and time: 10/08/2022 9:16 PM Age: 32 years old Clinical indication: Injury or trauma; Fall; Blunt trauma (contusions or hematomas); Consciousness not specified; Injury details: Left sided head injury TECHNIQUE: Imaging protocol: Computed tomography of the head without contrast. Radiation optimization: All CT scans at this facility use at least one of these dose optimization techniques: automated exposure control; mA and/or kV adjustment per patient size (includes targeted exams where dose is matched to clinical indication); or iterative reconstruction. REPORTING DATA: Count of CT and Cardiac NM exams in prior 12 months: This patient has received 0 known CTs and 0 known cardiac nuclear medicine studies in the 12 months prior to the current study. COMPARISON: CT neck w con* [id number] 03/21/2020 3:34 PM RADIATION DOSE METRICS: Total DLP (mGy-cm): 1270.88 FINDINGS: Brain: Normal. No hemorrhage. Unremarkable white matter. No mass effect. Cerebral ventricles: No ventriculomegaly. Paranasal sinuses: Visualized sinuses are unremarkable. No fluid levels. Mastoid air cells: Visualized mastoid air cells are well aerated. Bones/joints: Unremarkable. No acute fracture. Soft tissues: Left parietal scalp hematoma is noted. CT/CT head wo con* [id number] IMPRESSION: No acute intracranial abnormality
--- NOTE | 2022-10-08 21:03 | W.ED.FALL ---
HPI - Fall General: Chief Complaint: Fall Stated Complaint: head injury Time Seen by Provider: 10/08/22 20:33 Source: patient Mode of arrival: ambulatory Limitations: no limitations History of Present Illness: 32-year-old male who is here he is playing basketball 3 hours ago he fell hit the back of his head did have a short period of loss consciousness he had a headache that is since resolved he states he had some dizzy no nausea no vomiting denies any neck pain denies any other injuries. Associated symptoms-after fall: Reports headache(s); Denies abdominal pain, chest pain or neck pain Review of Systems Const: Denies: fever(s), chills, body aches or change in appetite Eyes: Denies: blurry vision ENMT: Denies: throat pain or dental pain Card: Denies: chest pain Resp: Denies: dyspnea GI: Denies: abdominal pain, nausea or vomiting Musc: Denies: neck pain or back pain Skin/Breast: Denies: rash Neuro: Reports: headache(s) PFSH ED PFSH: Medical History Intermittent explosive disorder Moderate intellectual disabilities Psychiatric care Testicular pain Social History Smoking and tobacco status: never smoked Alcohol intake: never Substance/Drug Use: never Caregiver/support person: Yes Lives independently: No Housing: Assisted Living Facility Marital status: Single Current occupational status: disabled Physical Exam Const: COMMON NORMALS: no acute distress, patient oriented x3 and healthy appearing HENMT: COMMON NORMALS: normocephalic HEAD & SCALP: normocephalic OTHER: tenderness to posterior scalp with heamtoma Eye: COMMON NORMALS: Equal, round and reactive pupils present and EOMs intact bilaterally PUPIL: Yes Equal, round and reactive pupils present Neck/C-Spine: COMMON NORMALS: full ROM and supple Chest: COMMONS NORMALS: normal inspection of the chest Resp: COMMON NORMALS: normal respiratory effort Cardio: COMMON NORMALS: regular rate, regular rhythm and No murmurs present (Cardio) RATE: regular rate RHYTHM: regular rhythm GI: INSPECTION: Yes normal to inspection Extremity: COMMON NORMALS: normal to inspection and full ROM Neuro: COMMON NORMALS: patient oriented x3, moves all extremities and no focal motor deficits Psych: COMMON NORMALS: mental status grossly normal, Normal thought process present and cooperative THOUGHT PROCESS: Normal thought process present Skin: COMMON NORMALS: no rashes or lesions noted and no wounds GENERAL SKIN EXAM: no rashes or lesions noted Course Vital Signs: Vital signs: Vital Signs Temperature 99.0 F 10/08/22 20:42 Pulse Rate 105 H 10/08/22 20:42 Respiratory Rate 16 10/08/22 20:42 Blood Pressure 155/92 10/08/22 20:42 Pulse Oximetry 95 10/08/22 20:42 Oxygen Delivery Me thod Room Air 10/08/22 20:42 MDM - Fall Medical Decision Making Patient presents after closed head injury his head CT here is normal he has been well-appearing here he is stable for discharge is to follow-up with PCP and return if worsening. Medical Records I reviewed the patient's medical records. Lab Data Radiology Impressions Head CT 10/08/22 21:03 IMPRESSION: No acute intracranial abnormality Discharge Plan Discharge Patient Disposition: Home Clinical Impression: Closed head injury Condition: Stable Prescriptions: No Action ferrous sulfate 325 mg (65 mg iron) tablet 325 mg PO DAILY levothyroxine 125 mcg capsule 125 mcg PO DAILY Levemir U-100 Insulin 100 unit/mL solution 65 unit SUBCUT BID atorvastatin 20 mg tablet 40 mg PO DAILY insulin aspart U-100 [Novolog PenFill U-100 Insulin] 100 unit/mL cartridge See Rx Instructions .ROUTE .COMPLEX Rx Instructions: 38 unit subcutaneously plus sliding scale lunch and dinner will be 42 units pantoprazole 40 mg tablet,delayed release (DR/EC) 40 mg PO DAILY ondansetron HCl 4 mg tablet 4 mg PO Q8H PRN (Reason: Nausea) lisinopril 2.5 mg tablet 5 mg PO DAILY fenofibrate 54 mg tablet 54 mg PO DAILY (DME) pen needle, diabetic [Comfort EZ Pen [place]] 31 gauge x 5/16 needle See Rx Instructions .Route Qty: 100 2RF Rx Instructions: As directed metformin 500 mg tablet extended release 24 hr 500 mg PO .at Bedtime benztropine 0.5 mg tablet See Rx Instructions .ROUTE .COMPLEX Qty: 90 2RF Dose Instruction: TAKE 1 TABLET BY MOUTH THREE TIMES DAILY Rx Instructions: TAKE 1 TABLET BY MOUTH THREE TIMES DAILY risperidone 1 mg tablet See Rx Instructions .ROUTE .COMPLEX Qty: 180 2RF Dose Instruction: TAKE 2 TABLETS BY MOUTH THREE TIMES DAILY Rx Instructions: TAKE 2 TABLETS BY MOUTH THREE TIMES DAILY trazodone 150 mg tablet 150 mg PO BEDTIME Qty: 30 2RF fluoxetine 20 mg capsule See Rx Instructions .ROUTE .COMPLEX Qty: 30 2RF Dose Instruction: take 1 capsule BY MOUTH EVERY DAY Rx Instructions: take 1 capsule BY MOUTH EVERY DAY divalproex 500 mg tablet extended release 24 hr See Rx Instructions .ROUTE .COMPLEX Qty: 120 2RF Dose Instruction: TAKE 1 TABLET BY MOUTH EVERY MORNING and THREE AT BEDTIME Rx Instructions: TAKE 1 TABLET BY MOUTH EVERY MORNING and THREE AT BEDTIME oxcarbazepine 600 mg tablet See Rx Instructions .ROUTE .COMPLEX Qty: 90 2RF Dose Instruction: TAKE 1 TABLET BY MOUTH THREE TIMES DAILY Rx Instructions: TAKE 1 TABLET BY MOUTH THREE TIMES DAILY hydroxyzine HCl 25 mg tablet See Rx Instructions .ROUTE .COMPLEX Qty: 50 1RF Dose Instruction: TAKE 1 TABLET BY MOUTH TWICE DAILY AT 730AM AND 330PM Rx Instructions: TAKE 1 TABLET BY MOUTH TWICE DAILY AT 730AM AND 330PM ibuprofen [IBU] 800 mg tablet 800 mg PO TID PRN (Reason: pain) Qty: 30 0RF Rx Instructions: take 1 PO TID PRN pain - take with food to avoid stomach upset lidocaine HCl [Lidocaine Viscous] 2 % solution 1.2 ml topical Q3H PRN (Reason: pain) Qty: 15 0RF Rx Instructions: apply to the affected tooth every 3 hours PRN pain - apply with Q_Tip multivitamin Tablet 1 tab PO DAILY Discharge Orders: Discharge ED (Routine); Ordered 10/08/22 Ordered By: Daljit Scott Referrals: Naeem Sheikh MD [Primary Care Provider] - 1-3 days Discharge Diet: Advance as tolerated Discharge Activity: Resume usual activity Patient Instructions: Head Injury (ED) Coding Level of Care Code ED Vinyl Dipper for Romina Jeff
[2022-10-08 21:44] VITALS: BP 150/93; RESP 18; O2SAT 93
[2022-10-08 21:45] VITALS: BP 150/93; PULSE 101; RESP 18; O2SAT 94
== END 2022-10-08 21:51 | disposition home or self-care (01) ==
PROVIDERS: Emergency Provider Emergency Medicine; PCP Family Medicine
DX: S06.891A Other specified intracranial injury with loss of consciousness of 30 minutes or less, initial encounter (principal); W19.XXXA Unspecified fall, initial encounter; Y93.67 Activity, basketball
CPT/HCPCS: 70450; 99284

== ENCOUNTER → 2023-02-27 13:34 | Outpatient (BNVA) | payer MEDICAID, SELFPAY | PROVIDERS: PCP Family Medicine; Referring Provider Family Medicine; Visit Provider Surgery | DX: K21.9 Gastro-esophageal reflux disease without esophagitis (principal) | CPT/HCPCS: 99203 ==

== ENCOUNTER 2023-03-28 06:42 | Day surgery (SDC) | payer MEDICAID, SELFPAY ==
[2023-03-28 07:03] VITALS: BP 181/115; PULSE 87; RESP 16; TEMP 36.7; O2SAT 98; BMI 37.6
--- NOTE | 2023-03-28 07:16 | ANES.PREANE2 ---
Pre-Anesthetic Assessment Height/Weight: Height 1.8 m Weight 122.47 kg Temp Pulse Resp BP Pulse Ox O2 Del Method 98.0 F 87 16 181/115 98 Room Air 03/28/23 07:03 03/28/23 07:03 03/28/23 07:03 03/28/23 07:03 03/28/23 07:03 03/28/23 07:03 Operation Date: 03/28/23 07:45 Proposed Procedures p EGD 18834,k21.9(Not Applicable) - Sunil Key DO Familial anesthetic complications: None Was Beta Cristy taken within 24 hours: N/A Was Clonidine taken within 24 hours: N/A Last intake: Intake Last Liquid Date 03/27/23 Last Liquid Time 20:00 Last Solid Date 03/27/23 Last Solid Time 20:00 Social No alcohol and No tobacco Exam alert, oriented x 3, clear to auscultation bilaterally and regular rate & rhythm Airway Submandibular: within normal limits Cervical ROM: within normal limits Mallampati: Class III Dentition: full Comments: Comments: [place] History/ROS No significant history except as noted and No significant complaints Pulmonary None reported CV/HEM Anemia and Hypertension None reported Hepatic None reported GI Gastroesophageal Reflux Disease (None this morning) Metabolic Diabetes Mellitus, Hyperlipidemia, Morbid Obesity and Thyroid Disease [facility] [place] None reported Neuropsych Anxiety, Depression and Headache Intermittent explosive disorder Anesthetic Plan ASA status: 3 Anesthesia: Anesthesia Evaluation, General and MAC Risk of > 500 ml blood loss (7ml/kg in children): No Medications/Allergies Home Medications Medication Instructions Recorded Confirmed Last Taken Type ferrous sulfate 325 mg (65 mg 325 mg PO DAILY 02/13/20 03/28/23 03/27/23 History iron) tablet levothyroxine 125 mcg capsule 125 mcg PO DAILY 02/13/20 03/28/23 03/27/23 History lidocaine HCl 2 % mucosal solution 1.2 ml topical Q3H PRN pain #15 mL 03/19/20 03/28/23 Unknown Rx (Lidocaine Viscous) atorvastatin 20 mg tablet 40 mg PO DAILY 02/10/21 03/28/23 03/27/23 History insulin detemir U-100 100 unit/mL 65 unit SUBCUT BID 02/10/21 03/28/23 03/27/23 History subcutaneous solution (Levemir U-100 Insulin) ondansetron HCl 4 mg tablet 4 mg PO Q8H PRN Nausea 02/10/21 03/28/23 Unknown History pantoprazole 40 mg tablet,delayed 40 mg PO DAILY 02/10/21 03/28/23 03/27/23 History release lisinopril 2.5 mg tablet 5 mg PO DAILY 08/11/21 03/28/23 03/27/23 History fenofibrate 54 mg tablet 54 mg PO DAILY 05/23/22 03/28/23 03/27/23 History pen needle, diabetic 31 gauge x #100 ea 05/23/22 03/15/23 Unknown Rx 09/12 (Comfort EZ Pen [place]) multivitamin 1 tab PO DAILY 07/17/22 03/28/23 03/27/23 History insulin aspart U-100 100 unit/mL See Rx Instructions .Route .COMPLEX 08/31/22 03/28/23 03/27/23 History subcutaneous cartridge (Novolog PenFill U-100 Insulin aspart) risperidone 1 mg tablet See Rx Instructions .Route 03/05/23 03/28/23 03/27/23 Rx .COMPLEX #180 tabs benztropine 0.5 mg tablet See Rx Instructions .Route 03/15/23 03/28/23 03/27/23 Rx .COMPLEX #90 tabs divalproex 500 mg tablet,extended See Rx Instructions .Route 03/15/23 03/28/23 03/27/23 Rx release 24 hr .COMPLEX #120 tabs fluoxetine 20 mg capsule See Rx Instructions .Route 03/15/23 03/28/23 03/27/23 Rx .COMPLEX #30 caps hydroxyzine HCl 25 mg tablet See Rx Instructions .Route 03/15/23 03/28/23 03/27/23 Rx .COMPLEX #60 tabs oxcarbazepine 600 mg tablet See Rx Instructions .Route 03/15/23 03/28/23 03/27/23 Rx .COMPLEX #90 tabs trazodone 150 mg tablet 150 mg PO BEDTIME #30 tabs 03/15/23 03/28/23 03/27/23 Rx Allergies Allergy/AdvReac Type Severity Reaction Status Date / Time chocolate flavor Allergy Unknown Verified 03/27/23 08:41 [facility] Anesthesia Medical History Intermittent explosive disorder Moderate intellectual disabilities Psychiatric care Testicular pain Social History Smoking and tobacco/nicotine status: never used tobacco/nicotine Alcohol intake: never Substance/Drug Use: never Caregiver/support person: Yes Lives independently: No Housing: Assisted Living Facility Marital status: Single Current occupational status: disabled Data Anesthesia Cardiac Studies: No Data to Display
[2023-03-28 07:18] LABS: Glucose Point of Care 176 mg/dL (70-110)
[2023-03-28] MEDS: sodium chloride 0.9% 1,000 ML 30 ML IV (07:18)
--- NOTE | 2023-03-28 07:51 | W.PM.OPSUD ---
Surgery/Procedure H&P Update DATE OF PROCEDURE: March 28, 2023 DATE H&P PERFORMED: 02/27/23 H&P UPDATE INFORMATION: I have reviewed H&P completed within last 30 days, I have examined patient prior to procedure and No changes to prior documentation PLANNED PROCEDURE: Operation Date: 03/28/23 07:45 Proposed Procedures p EGD 49869,k21.9(Not Applicable) - Sunil Key, DO
[2023-03-28 08:06] VITALS: BP 131/73; PULSE 87; RESP 16; TEMP 36.5; O2SAT 95
[2023-03-28 08:11] VITALS: BP 140/86; PULSE 84; RESP 18; O2SAT 93
[2023-03-28 08:21] VITALS: BP 129/71; PULSE 80; RESP 18; O2SAT 93
--- NOTE | 2023-03-28 13:28 | ANE.PACU2 ---
Inpatient post-anesthesia follow up: Airway intact: Yes Vital signs: Temperature 97.7 F Pulse Rate 80 Respiratory Rate 18 Blood Pressure 129/71 Pulse Oximetry 93 Oxygen Delivery Me thod Room Air Oxygen Flow Rate Fraction of Inspir ed Oxygen Hydration adequate: Yes Nausea and vomiting: No Pain level: 1 Mental status: Baseline
== END 2023-03-28 08:35 | disposition home or self-care (01) ==
PROVIDERS: PCP Family Medicine; Visit Provider Surgery
PROC: 0DJ08ZZ Inspection of Upper Intestinal Tract, Via Natural or Artificial Opening Endoscopic (ICD-10-PCS; CPT 43235; principal; 2023-03-28 07:45)
DX: K21.9 Gastro-esophageal reflux disease without esophagitis (principal); K29.70 Gastritis, unspecified, without bleeding; I10 Essential (primary) hypertension; E11.9 Type 2 diabetes mellitus without complications; E78.5 Hyperlipidemia, unspecified; E66.01 Morbid (severe) obesity due to excess calories; Z68.37 Body mass index [BMI] 37.0-37.9, adult; Z79.4 Long term (current) use of insulin
CPT/HCPCS: 36416; 43239; 82962; 88305; J2704; J7030

== ENCOUNTER → 2023-04-04 13:11 | Outpatient (BNVA) | payer MEDICAID, SELFPAY | PROVIDERS: PCP Family Medicine; Visit Provider Surgery | DX: R10.9 Unspecified abdominal pain; R11.0 Nausea | CPT/HCPCS: 99214 ==

== ENCOUNTER 2023-04-19 07:26 | Outpatient (CLI) | payer MEDICAID, SELFPAY ==
--- NOTE | 2023-04-19 07:30 | US_ITS ---
WS: [id number] RIGHT UPPER QUADRANT ULTRASOUND HISTORY: abdominal pain COMPARISON: None available. Liver: 21.7 cm in length. Moderately enlarged liver with diffuse coarse echotexture from hepatic stea tosis. No mass identified but the entire liver is not well imaged. Portal Vein: Normal hepatopetal flow with monophasic waveform. Gallbladder: Normally distended gallbladder with no stones or wall thickening. CBD: 0.3 cm Pancreas: Portions of the head and tail are obscured. The body is negative. Right kidney: 11.9 cm in length. Normal size and echogenicity. No hydronephrosis or mass. Aorta and IVC: Unremarkable abdominal aorta and IVC. No ascites. IMPRESSION: 1. Normal gallbladder. 2. Moderate hepatomegaly and hepatic steatosis. The entire liver is not well visualized secondary to attenuation.
== END 2023-04-19 07:27 | disposition home or self-care (01) ==
LOC: RAD 07:26
PROVIDERS: PCP Family Medicine; Visit Provider Surgery
DX: R10.9 Unspecified abdominal pain (principal); K76.0 Fatty (change of) liver, not elsewhere classified; R16.0 Hepatomegaly, not elsewhere classified
CPT/HCPCS: 76705

== ENCOUNTER 2023-05-30 09:40 | Outpatient (CLI) | payer MEDICAID, SELFPAY ==
--- NOTE | 2023-05-30 10:00 | NM_ITS ---
WS: [id number] NUCLEAR MEDICINE HIDA SCAN CLINICAL INFORMATION: abdominal pain TECHNIQUE: Following intravenous administration of 7.4 mCi of technetium 99m mebrofenin, images of th e abdomen were obtained over the course of 60 minutes. Next, gallbladder ejection fraction was determ ined by obtaining preprandial and one-hour postprandial images of the gallbladder following oral jay stion of Ensure. COMPARISON: Ultrasound 04/19/2023 FINDINGS: Hepatomegaly. Normal hepatic uptake. Normal excretion. Gallbladder is visualized by 10 minutes. No ev idence of acute cholecystitis. Normal common bile duct and small bowel activity. Gallbladder ejection fraction 95% within normal limits. No evidence of chronic cholecystitis. IMPRESSION: 1. No evidence of acute or chronic cholecystitis. 2. Gallbladder ejection fraction 95% within normal limits.
== END 2023-05-30 09:41 | disposition home or self-care (01) ==
PROVIDERS: PCP Family Medicine; Visit Provider Surgery
DX: R10.9 Unspecified abdominal pain (principal)
CPT/HCPCS: 78227; A9537

== ENCOUNTER → 2023-10-25 09:20 | Outpatient (BNVA) | payer OTHER, SELFPAY | PROVIDERS: PCP Family Medicine; Visit Provider Nurse Practitioner | DX: Z79.899 Other long term (current) drug therapy (principal) | CPT/HCPCS: 80164 ==

== ENCOUNTER → 2024-01-07 14:35 | Outpatient (BNVA) | payer MEDICAID, SELFPAY | PROVIDERS: PCP Family Medicine; Visit Provider Podiatrist Foot & Ankle Surgery | DX: L60.3 Nail dystrophy (principal); L60.0 Ingrowing nail; E10.69 Type 1 diabetes mellitus with other specified complication; Z79.4 Long term (current) use of insulin; M79.672 Pain in left foot | CPT/HCPCS: 11721; 99203 ==

== ENCOUNTER → 2024-01-13 11:05 | Outpatient (BNVA) | payer MEDICAID, SELFPAY | PROVIDERS: PCP Family Medicine; Visit Provider Emergency Medicine | DX: Z20.822 Contact with and (suspected) exposure to COVID-19 (principal) | CPT/HCPCS: 87426 ==

== ENCOUNTER → 2024-03-25 09:43 | Outpatient (BNVA) | payer MEDICAID, SELFPAY | PROVIDERS: PCP Family Medicine; Visit Provider Podiatrist Foot & Ankle Surgery | DX: L60.3 Nail dystrophy (principal); L60.0 Ingrowing nail; E10.69 Type 1 diabetes mellitus with other specified complication; Z79.4 Long term (current) use of insulin | CPT/HCPCS: 99213 ==

== ENCOUNTER → 2024-07-07 14:57 | Outpatient (BNVA) | payer MEDICAID, SELFPAY | PROVIDERS: PCP Family Medicine; Visit Provider Podiatrist Foot & Ankle Surgery | DX: L60.3 Nail dystrophy (principal); L60.0 Ingrowing nail; E10.69 Type 1 diabetes mellitus with other specified complication; Z79.4 Long term (current) use of insulin | CPT/HCPCS: 99213 ==

== ENCOUNTER → 2024-09-02 09:54 | Outpatient (BNVA) | payer MEDICAID, SELFPAY | PROVIDERS: PCP Family Medicine; Visit Provider Internal Medicine | DX: E10.9 Type 1 diabetes mellitus without complications (principal); E78.2 Mixed hyperlipidemia | CPT/HCPCS: 99204 ==

== ENCOUNTER → 2024-11-07 09:17 | Outpatient (BNVA) | payer MEDICAID, SELFPAY | PROVIDERS: PCP Family Medicine; Visit Provider Internal Medicine | DX: E78.2 Mixed hyperlipidemia (principal); E10.9 Type 1 diabetes mellitus without complications; Z79.4 Long term (current) use of insulin | CPT/HCPCS: 99214 ==

== ENCOUNTER 2024-11-14 08:02 | Outpatient (CLI) | payer MEDICAID, SELFPAY ==
--- NOTE | 2024-11-14 08:20 | NM_ITS ---
WS: [id number] NUCLEAR MEDICINE GASTRIC STUDY CLINICAL INFORMATION: NAUSEA, VOMITING TECHNIQUE: Following oral ingestion of cooked egg mixed with 1.04 mCi technetium 99m sulfur colloid, anterior images of the stomach were obtained over the course of 90 minutes. Activity curve was performed over the course of 90 minutes with linear regression analysis. COMPARISON: None. FINDINGS: Ingestion of cooked egg mixture Somewhat rapid but within normal limits T1 half emptying 45.3 minutes 71% emptying at 60 minutes NM/[place] [id number] IMPRESSION: 1. No evidence of gastric retention. 2. Somewhat rapid but within normal limits T1 half emptying 45.3 minutes *Normal median T1 half 90 minutes for solid egg meal (45-110 minutes). Delayed gastric retention is defined as 90% retained at 1 hour, 60% at 2 hour s, 30% at 3 hours, and 10% at 4 hours (normal percent gastric retention is 37-9 0% at 1 hour, 30-60% at 2 hours, and 0-10% at 4 hours).
== END 2024-11-14 08:03 | disposition home or self-care (01) ==
PROVIDERS: PCP Family Medicine; Visit Provider Family Medicine
DX: R11.15 Cyclical vomiting syndrome unrelated to migraine (principal)
CPT/HCPCS: 78264; A9541

== ENCOUNTER 2024-11-25 09:46 | Outpatient (CLI) | payer BC, MEDICAID, SELFPAY ==
[2024-11-25 10:44] LABS: Albumin Level 4.3 g/dL (3.5-5.2); Alkaline Phosphatase 90 U/L (40-130); Blood Urea Nitrogen 13 mg/dL (6-20); Calcium 9.4 mg/dL (8.5-10.5); Carbon Dioxide 27 mmol/L (22-29); Chloride 99 mmol/L (98-107); Cholesterol 201 mg/dL (0-200); Globulin 2.8 g/dL (1.3-4.6); Glucose 187 mg/dL (65-115); HDL Cholesterol 27 mg/dL (60-100); Osmolality Calculated 295 mOsm/kg (285-295); Sodium 140 mmol/L (136-145); Total Protein 7.1 g/dL (6.6-8.7)
[2024-11-25 10:49] LABS: Anion Gap 18.3 (5-19); Potassium 4.3 mmol/L (3.5-5.1)
[2024-11-25 10:58] LABS: Estmated Average Glucose 183; Hemoglobin A1C 8.0 % (4.0-6.0)
[2024-11-25 10:59] LABS: Triglycerides 984 mg/dL (0-150)
[2024-11-25 11:01] LABS: Creatinine Urine, Random 186 mg/dL (39-259); Microalbum Creatinine Ratio Ur 16 mg/dL (0-20)
[2024-11-25 11:35] LABS: Alanine Aminotransferase 35 U/L (0-41); Aspartate Amino Transferase 24 U/L (0-40)
== END 2024-11-25 09:47 | disposition home or self-care (01) ==
PROVIDERS: PCP Family Medicine; Visit Provider Internal Medicine
DX: E78.2 Mixed hyperlipidemia (principal); E10.9 Type 1 diabetes mellitus without complications
CPT/HCPCS: 36415; 80053; 80061; 82044; 83036; 83721

== ENCOUNTER → 2024-12-02 11:29 | Outpatient (BNVA) | payer MEDICAID, SELFPAY | PROVIDERS: PCP Family Medicine; Visit Provider Internal Medicine | DX: E10.9 Type 1 diabetes mellitus without complications (principal); E78.2 Mixed hyperlipidemia | CPT/HCPCS: 99214 ==

== ENCOUNTER → 2025-01-06 14:53 | Outpatient (BNVA) | payer OTHER, SELFPAY | PROVIDERS: PCP Family Medicine; Visit Provider Podiatrist Foot & Ankle Surgery | DX: E10.69 Type 1 diabetes mellitus with other specified complication (principal); L60.3 Nail dystrophy; L60.0 Ingrowing nail; Z79.4 Long term (current) use of insulin | CPT/HCPCS: 99213 ==

== ENCOUNTER → 2025-01-13 09:33 | Outpatient (BNVA) | payer OTHER, SELFPAY | PROVIDERS: PCP Family Medicine; Visit Provider Nurse Practitioner | DX: Z79.899 Other long term (current) drug therapy (principal) | CPT/HCPCS: 80164 ==

== ENCOUNTER 2025-02-03 18:00 | Emergency (ER) | payer MEDICAID, SELFPAY ==
[2025-02-03 18:02] VITALS: BP 147/99; PULSE 93; RESP 16; TEMP 36.8; O2SAT 92; BMI 41.3
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
[2025-02-03] MEDS: lidocaine-epi 2% 20 mL INJ INJECTION (18:14)
[2025-02-03] MEDS: tetanus-dipt-pertussis 0.5 mL SDV IM (18:20)
== END 2025-02-03 18:52 | disposition home or self-care (01) ==
PROVIDERS: Emergency Provider Emergency Medicine; PCP Family Medicine
DX: S01.511A Laceration without foreign body of lip, initial encounter (principal); Z79.4 Long term (current) use of insulin; E10.9 Type 1 diabetes mellitus without complications; Y04.8XXA Assault by other bodily force, initial encounter
CPT/HCPCS: 12013; 90471; 90715; 99283; 99291; J9999

== ENCOUNTER → 2025-02-06 09:09 | Outpatient (BNVA) | payer MEDICAID, SELFPAY | PROVIDERS: PCP Family Medicine; Visit Provider Internal Medicine | DX: E10.9 Type 1 diabetes mellitus without complications (principal); E78.2 Mixed hyperlipidemia; Z79.4 Long term (current) use of insulin | CPT/HCPCS: 99214 ==